=== PATIENT | female | born 1985 | race Caucasian/White ===

== ENCOUNTER 2023-01-07 10:50 | Day surgery (SDC) | payer OTHER ==
[~2023-01-07 10:50] MED LIST: D3 + K2 DOTS 11 EACH PO; FOCALIN XR20 MG PO; LAMOTRIGINE25 M1; MAGNESIUM200 MG PO; MULTIPLE VITAM1 EAC2 PO; OMEGA-31000 MG PO
== END 2023-01-07 18:00 | disposition home or self-care (01) ==
LOC: CIR.AMB 10:50
PROVIDERS: ATTEND Urology
DX: R31.0 Gross hematuria (principal); Z88.6 Allergy status to analgesic agent